=== PATIENT | female | born 1960 | race Hispanic/Latino ===

== ENCOUNTER 2024-11-10 10:00 | Day surgery (SDC) | payer OTHER ==
[~2024-11-10] VITALS: Ht 149.9 cm; Wt 99.8 kg
[2024-11-10] VITALS (10 sets, daily range): BP systolic 130–155; BP diastolic 55–71; PULSE 60–69; RESP 14–17; TEMP 97.1–97.6
[2024-11-10] MEDS ORDERED: ketaMINE 50MG/ML SYRINGE 50 MG/ML DISP.SYRIN ONE (10:22)
[2024-11-10] MEDS ORDERED: GABA-529 PO ×2 (10:30)
[2024-11-10] MEDS ORDERED: METO25TA6 PO (10:30)
[2024-11-10] MEDS ORDERED: ONDA-104 PO (10:30)
[2024-11-10] MEDS ORDERED: PANT40TA54 PO (10:30)
[2024-11-10] MEDS ORDERED: AMIO200T68 PO (10:30)
[2024-11-10] MEDS ORDERED: CLOT10TR MM (10:30)
[2024-11-10] MEDS ORDERED: CYCL5TAB3 PO (10:30)
[2024-11-10] MEDS ORDERED: ALPR0.5T8 PO (10:30)
[2024-11-10] MEDS ORDERED: ALBU18HF7 IH (10:30)
[2024-11-10] MEDS ORDERED: AMAN100C14 PO (10:30)
[2024-11-10] MEDS ORDERED: ATOR20TA65 PO (10:30)
[2024-11-10] MEDS ORDERED: CARB1TAB42 PO (10:30)
[2024-11-10] MEDS: 0.9%NACL 1000ML 1,000 ML IV ONE (13:02)
[2024-11-10] MEDS ORDERED: LIDOCAINE PF 100MG/5ML (2%) SYRINGE 5ML ONE (13:44)
[2024-11-10] MEDS ORDERED: proPOFol 10 MG/ML 20ML VIAL IV ONE (13:45)
[2024-11-10] MEDS ORDERED: PANT40TA55 PO (15:29)
--- NOTE | 2024-11-10 15:52 | NUR ---
Full and complete discharge instructions given to Patient and Family both verbally and in writing. Explained GI procedure precautions and follow up. All questions answered. PIV removed with catheter tip intact. Home with Family W/C to POV.
== END 2024-11-10 15:53 | disposition home or self-care (01) ==
LOC: ENDO 10:00 → DAH 10:00 → ENDO 15:53
PROVIDERS: ATTEND Internal Medicine Gastroenterology
DX: R10.13 Epigastric pain (principal); K25.9 Gastric ulcer, unspecified as acute or chronic, without hemorrhage or perforation; K21.00 Gastro-esophageal reflux disease with esophagitis, without bleeding; K29.50 Unspecified chronic gastritis without bleeding; K44.9 Diaphragmatic hernia without obstruction or gangrene; E11.9 Type 2 diabetes mellitus without complications; I10 Essential (primary) hypertension; J96.10 Chronic respiratory failure, unspecified whether with hypoxia or hypercapnia; J45.909 Unspecified asthma, uncomplicated; I25.10 Atherosclerotic heart disease of native coronary artery without angina pectoris; I25.2 Old myocardial infarction; F32.A Depression, unspecified; I48.91 Unspecified atrial fibrillation; M19.90 Unspecified osteoarthritis, unspecified site; Z79.899 Other long term (current) drug therapy; Z95.2 Presence of prosthetic heart valve; Z90.49 Acquired absence of other specified parts of digestive tract; Z98.51 Tubal ligation status; Z98.890 Other specified postprocedural states; Z87.19 Personal history of other diseases of the digestive system
CPT/HCPCS: 43239; 88305; 88312; J7030; J2003; J2704; J3490; A4620; A4215 ×2; A4223; A4657 ×2; A4222; A4221; A4663; A4606